=== PATIENT | female | born 1960 | race Hispanic/Latino ===

== ENCOUNTER → 2019-05-26 | Outpatient (CLI) | payer MEDICARE ==
--- NOTE | 2019-05-26 13:24 | Diagnostic Imaging Report ---
Modified barium swallow, 05/26/2019. History: Dysphagia. Fluoro time: 1.2 min. Dose: 4.1 mGy ([facility]) Discussion: Fluoroscopy was performed by roving technician. A radiologist was not present for exam. Fluoroscopic observation and imaging of the oral cavity, oropharynx, and hypopharynx was performed in the lateral projection during swallowing of liquids and solids, administered by speech pathology. See speech pathologist report for findings. Penetration was noted without evidence of aspiration. Signed by: Karsten Salgado on 05/26/2019 1:21 PM
== END ==
LOC: DX 10:15
PROVIDERS: ATTEND Otolaryngology
DX: R13.10 Dysphagia, unspecified (principal); J38.1 Polyp of vocal cord and larynx; K21.9 Gastro-esophageal reflux disease without esophagitis
CPT/HCPCS: 74230